=== PATIENT | female | born 1965 | race Caucasian/White ===

== ENCOUNTER 2020-10-09 08:01 | Outpatient (CLI) | payer BC ==
[2020-10-09 09:48] LABS: Hemoglobin 13.4 g/dL (12.0-15.5); Mean Corpuscular Hemoglobin 30.9 pg (27.0-33.0); Mean Corpuscular Volume 93.8 fl (81.6-98.3); Mean Platelet Volume 10.4 fl (7.4-10.4); Platelet Count 240 10x3/uL (150-450); RBC Distribution Width 12.3 % (11.5-14.5); Red Blood Cell (RBC) Count 4.33 10x6/uL (3.90-5.03); White Blood Cell (WBC) Count 5.8 10x3/uL (3.5-10.5)
[2020-10-09 10:17] LABS: Anion Gap 12 mmol/L (10-20); BUN (Urea Nitrogen) 7 mg/dL (9.8-20.1); Calc. Creatinine Clearance 0 mL/min (70-130); Calcium 9.1 mg/dL (7.8-10.44); Carbon Dioxide 28 mmol/L (22-29); Chloride 107 mmol/L (98-107); Glucose 89 mg/dL (70-105); INR-International Normal Ratio 0.9; PTT 24.8 sec (22.0-33.0); Potassium 4.3 mmol/L (3.5-5.1); Prothrombin Time 10.5 sec (9.5-12.1); Sodium 143 mmol/L (136-145)
== END 2020-10-09 08:02 | disposition home or self-care (01) ==
LOC: LABBT 08:01
PROVIDERS: ATTEND Surgery
DX: Z01.818 Encounter for other preprocedural examination (principal); M51.16 Intervertebral disc disorders with radiculopathy, lumbar region; Z20.822 Contact with and (suspected) exposure to COVID-19
CPT/HCPCS: 80048; 85027; 85610; 85730; 93005; 93010

== ENCOUNTER 2020-10-12 06:02 | Observation (INO) | payer BC ==
[2020-10-11 09:45] VITALS: BMI 26.6
[2020-10-12] MEDS ORDERED: Thrombin 5000 UNITS/5 ML VIAL ONE (06:34)
[2020-10-12] MEDS ORDERED: Fentanyl 250 MCG/5 ML VIAL ONE (07:03)
[2020-10-12] MEDS ORDERED: Midazolam HCl 2 mg/2 ml Vial ONE (07:35)
[2020-10-12] MEDS ORDERED: Lidocaine 1% PF 5 ML VIAL ONE (07:42)
[2020-10-12] MEDS ORDERED: Ketorolac Tromethamine 30 MG/ML VIAL ONE (07:42)
[2020-10-12] MEDS ORDERED: Dexamethasone 20 MG/5 ML VIAL ONE (07:42)
[2020-10-12] MEDS ORDERED: PROPOFOL 200 MG/20 ML VIAL ONE (07:42)
[2020-10-12] MEDS ORDERED: PHENYLEPHRINE-NS 100 MCG/ML 10 ML SYRINGE ONE (07:42)
[2020-10-12] MEDS ORDERED: Glycopyrrolate 0.2 MG/ML 5 ML SYRINGE ONE (07:42)
[2020-10-12] MEDS ORDERED: Rocuronium Bromide 10 MG/ML (10ML VIAL) ONE (07:42)
[2020-10-12] MEDS ORDERED: Ondansetron PF 4 MG/2 ML Vial ONE (07:42)
[2020-10-12] MEDS ORDERED: Ondansetron HCl/PF 4 MG/2 ML Vial IVP PRN (09:09)
[2020-10-12] MEDS ORDERED: Promethazine HCl 25 MG/ML VIAL SLOW IVP PRN (09:09)
[2020-10-12] MEDS ORDERED: HYDROmorphone 2 MG/ML VIAL SLOW IVP PRN (09:09)
[2020-10-12] MEDS ORDERED: PACU-Morphine 4MG/ML VIAL SLOW IVP PRN (09:09)
[2020-10-12] MEDS ORDERED: Promethazine HCl 25 MG/ML VIAL IM PRN (09:09)
[2020-10-12] MEDS ORDERED: Morphine Sulfate 2 MG/ML SYRINGE SLOW IVP PRN (09:09)
[2020-10-12] MEDS ORDERED: Morphine 2 MG/ML VIAL SLOW IVP PRN (09:36)
[2020-10-12] MEDS ORDERED: tiZANidine HCl 4 MG TAB PO PRN (09:36)
[2020-10-12] MEDS ORDERED: Acetaminophen/Codeine 30-300mg Tablet PO PRN (09:36)
[2020-10-12] MEDS ORDERED: HYDROcodone/Acetaminophen 7.5/325 mg Tablet PO PRN (09:36)
[2020-10-12] MEDS ORDERED: Acetaminophen 325 MG TAB PO PRN (09:36)
[2020-10-12] MEDS ORDERED: Melatonin 3 MG TAB PO PRN (09:41)
[2020-10-12] MEDS ORDERED: Fentanyl 100 MCG/2 ML VIAL ONE ×2 (10:04→10:45)
[2020-10-12] MEDS: traMADol HCl 50 MG TAB PO PRN ×2 (14:50→20:52)
[2020-10-12] MEDS: Sodium Chloride 0.9% 1,000 ML IV SCH (14:51)
[2020-10-12] MEDS: CEFAZOLIN 2 GM in Premix Bag 1 BAG IVPB SCH (15:53)
[2020-10-12] MEDS: Gabapentin 300 MG CAP PO SCH (20:52)
[2020-10-13] MEDS: CEFAZOLIN 2 GM in Premix Bag 1 BAG IVPB SCH (00:03)
[2020-10-13] MEDS: traMADol HCl 50 MG TAB PO PRN (05:47)
[2020-10-13] MEDS ORDERED: Levothyroxine Sodium 88 MCG TAB PO SCH (06:00)
[2020-10-13] MEDS: Sodium Chloride 0.9% 1,000 ML IV SCH (06:29)
[2020-10-13 07:32] VITALS: BP 107/69; TEMP 98.4
[2020-10-13] MEDS ORDERED: METHYLPHENIDATE HCL 18 MG PO SCH (09:00)
[2020-10-13] MEDS: Gabapentin 300 MG CAP PO SCH (09:23)
== END 2020-10-13 10:15 | disposition home or self-care (01) ==
LOC: SDC 06:02 → SURG A 09:36 → SDC 10-13 09:15 → SURG A 10-13 09:15
PROVIDERS: ADMIT Surgery; ATTEND Surgery
PROC: 01NB0ZZ Release Lumbar Nerve, Open Approach (ICD-10-PCS; principal; 2020-10-12)
PROC: 0SB20ZZ Excision of Lumbar Vertebral Disc, Open Approach (ICD-10-PCS; 2020-10-12)
DX: M51.16 Intervertebral disc disorders with radiculopathy, lumbar region (principal); M48.061 Spinal stenosis, lumbar region without neurogenic claudication; E03.9 Hypothyroidism, unspecified; Z79.899 Other long term (current) drug therapy; Z87.891 Personal history of nicotine dependence; Z88.1 Allergy status to other antibiotic agents; Z88.8 Allergy status to other drugs, medicaments and biological substances; Z91.013 Allergy to seafood
CPT/HCPCS: 76000; G0378; J0690; J1100; J1885; J2250; J2405; J2704; J3010; J3370